=== PATIENT | female | born 1985 | race American Indian/Alaskan Native ===

== ENCOUNTER 2019-12-25 23:16 | Emergency (ER) | payer MEDICAID ==
[2019-12-26] MEDS ORDERED: amLODIPine 5 MG TAB PO ONE ×2 (01:19→01:30)
[2019-12-26 01:31] VITALS: BP 134/94
--- NOTE | 2019-12-26 01:38 | Emergency Department Report ---
Chief Complaint: Dizziness Stated Complaint: ELEVATED BP Time Seen by Provider: 12/26/19 00:27 - HPI History of Present Illness: This is a 34-year-old female with a history of hypertension currently taking nifedipine 60 mg daily. Patient states that she has been out of her medication for the past week. Patient does note that for the past week since her blood pressure has been elevated she has been having some slight intermittent headaches and intermittent dizziness which happens when her blood pressure is elevated. Patient states that she does not think her medication is working in reducing her blood pressure. She denies fever/chills/nausea vomiting/abdominal pain/chest pain coughing or any other symptoms. - ROS Review of Systems: As noted in HPI - Exam Vital Signs: Vital Signs 12/25/19 12/26/19 23:21 01:31 Temperature 99.0 F Pulse Rate 67 61 Respiratory 20 Rate Blood Pressure 141/100 134/94 O2 Sat by Pulse 100 Oximetry Physical Exam: GENERAL: Alert and oriented x3, no apparent distress, Normal Gait, atraumatic. HEAD: Head is normocephalic and a-traumatic. EYES: Extra ocular muscles are intact. Pupils are equal, round, and reactive to light and accommodation. MOUTH:Mouth is well hydrated and without lesions. Tonsils nonerythematous or swollen, Uvula midline, Tongue not elevated. Mucous membranes are moist. Posterior pharynx clear, no exudate or lesions. Patent airways. NECK: Supple. Non edematous, No carotid bruits. No lymphadenopathy or thyromegaly. No C-spine tenderness LUNGS: Symetrical with respiration, No wheezing, no rales or crackles, CTAB. HEART: S1, S2 present, regular rate and rhythm without murmur, no rubs, no gallops. Non tender to palpation SKIN: Warm and dry, No lesions, No ulceration or induration present. MSE screening note: Focused history and physical exam performed. Due to findings the following was ordered: ED Medical Decision Making - Medical Decision Making This is a 34-year-old female presents to ED for uncontrolled hypertension, Patient denies any chest pain Discussed with patient to follow-up with primary care physician for management of hypertension. Vital signs are normal patient is in no acute distress patient received amlodipine 10 mg in the ED. Blood pressure reduced prior to discharge. Discussed with patient if any worsening symptoms to return to ED. ED Disposition for MSE Clinical Impression: Uncontrolled hypertension Disposition: Z MED SCREENING EXAM-LEFT Is pt being admited?: No Does the pt Need Aspirin: No Condition: Stable Instructions: Hypertension (ED) Additional Instructions: Make sure to follow up with the primary care physician as discussed. Take all your medications as you've been prescribed. If you have any worsening symptoms or develop new symptoms please return to ED immediately. Prescriptions: amLODIPine 10 mg PO DAILY #30 tab Referrals: PRIMARY CARE, [Primary Care Provider] - 3-5 Days [facility] [Provider Group] - 3-5 Days [facility] [Outside] - 3-5 Days [facility] [Outside] - 3-5 Days Forms: Accompanied Note, Work/School Release Form(ED) Time of Disposition: 01:36
== END 2019-12-26 01:50 | disposition left against medical advice (07) ==
LOC: ED 23:16
DX: I10 Essential (primary) hypertension (principal)
CPT/HCPCS: 99282

== ENCOUNTER 2020-05-29 11:18 | Emergency (ER) | payer MEDICAID ==
--- NOTE | 2020-05-29 12:38 | Event Note ---
ED Screening Note ED Screening Note: LLQ abd pain that began 3 AM this morning +dark urine no n/v/d no dysuria BM yesterday PMHx HTN, migraine no allergies to meds LNMP: last month This initial assessment/diagnostic orders/clinical plan/treatment(s) is/are subject to change based on patients health status, clinical progression and re-assessment by fellow clinical providers in the ED. Further treatment and workup at subsequent clinical providers discretion. Patient/guardian urged not to elope from the ED as their condition may be serious if not clinically assessed and managed. Initial orders include: labs, UA
[2020-05-29 14:00] LABS: Bilirubin,Urine NEG (Negative); Blood,Urine NEG (Negative); Color,Urine Yellow (Yellow); Mucus,Urine FEW /HPF; Urobilinogen,Urine < 2.0 mg/dL (<2.0)
[2020-05-29 14:42] LABS: Basophils # (Auto) 0.1 K/mm3 (0.0-0.1); Basophils % (Auto) 0.5 % (0.0-1.8); Eosinophils % (Auto) 0.1 % (0.0-4.3); Hematocrit 38.6 % (30.3-42.9); Hemoglobin 12.5 gm/dl (10.1-14.3); Lymphocytes # (Auto) 0.5 K/mm3 (1.2-5.4); Lymphocytes % (Auto) 5.1 % (13.4-35.0); Mean Corpuscular HGB Conc 32 % (30-34); Mean Corpuscular Volume 83 fl (79-97); Monocytes # (Auto) 0.6 K/mm3 (0.0-0.8); Monocytes % (Auto) 5.2 % (0.0-7.3); Platelet Count 233 K/mm3 (140-440); Red Blood Count 4.63 M/mm3 (3.65-5.03); Red Cell Distribution Width 15.3 % (13.2-15.2)
[2020-05-29 14:43] LABS: Alanine Aminotransferase 9 units/L (7-56); Albumin 4.3 g/dL (3.9-5); BUN/Creatinine Ratio 8; Blood Urea Nitrogen 6 mg/dL (7-17); Calcium 9.5 mg/dL (8.4-10.2); Hemolysis Index 6
--- NOTE | 2020-05-29 15:21 | Emergency Department Report ---
ED Abdominal Pain HPI - General Chief Complaint: Abdominal Pain Stated Complaint: CHEST AND ABD PAIN Time Seen by Provider: 05/29/20 12:37 Source: patient Mode of arrival: Ambulatory Limitations: No Limitations - History of Present Illness Initial Comments: Patient is a 34-year-old female presents emergency room with complaints of lower abd pain that began 3 AM this morning. She states that her urine did appear darker in color. She denies any back pain. She denies any nausea, vomiting, diarrhea, fever, dysuria. She does not report any vaginal discharge or irritation. She states that she had a normal bowel movement yesterday.PMHx HTN, migraine. no allergies to meds. LNMP: 05/01/2020 - Related Data Previous Rx's Medication Instructions Recorded Last Taken Type amLODIPine 10 mg PO DAILY #30 tab 12/26/19 Unknown Rx Butalb/Acetaminophen/Caffeine 1 cap PO Q8HR PRN #10 cap 05/08/20 Unknown Rx [Fioricet 50-300-40 mg CAP] Naproxen 500 mg PO BID PRN #14 tablet 05/29/20 Unknown Rx cephALEXin [Keflex] 500 mg PO BID 7 Days #14 cap 05/29/20 Unknown Rx Allergies Allergy/AdvReac Type Severity Reaction Status Date / Time No Known Allergies Allergy Unverified 12/26/19 01:30 ED Review of Systems ROS: Stated complaint: CHEST AND ABD PAIN Other details as noted in HPI Comment: All other systems reviewed and negative ED Past Medical Hx - Past Medical History Hx Hypertension: Yes - Surgical History Additional Surgical History: c-sec X 3 - Social History Smoking Status: Never Smoker Substance Use Type: None - Medications Home Medications: Home Medications Medication Instructions Recorded Confirmed Last Taken Type amLODIPine 10 mg PO DAILY #30 tab 12/26/19 Unknown Rx Butalb/Acetaminophen/Caffeine 1 cap PO Q8HR PRN #10 cap 05/08/20 Unknown Rx [Fioricet 50-300-40 mg CAP] Naproxen 500 mg PO BID PRN #14 tablet 05/29/20 Unknown Rx cephALEXin [Keflex] 500 mg PO BID 7 Days #14 cap 05/29/20 Unknown Rx ED Physical Exam - General Limitations: No Limitations General appearance: alert, in no apparent distress - Head Head exam: Present: atraumatic, normocephalic - Eye Eye exam: Present: normal appearance - ENT ENT exam: Present: mucous membranes moist - Respiratory Respiratory exam: Present: normal lung sounds bilaterally. Absent: respiratory distress, wheezes, rales, rhonchi, stridor, chest wall tenderness, accessory muscle use, decreased breath sounds, prolonged expiratory - Cardiovascular Cardiovascular Exam: Present: regular rate, normal rhythm, normal heart sounds. Absent: systolic murmur, diastolic murmur, rubs, gallop - GI/Abdominal GI/Abdominal exam: Present: soft, tenderness (suprapubic), normal bowel sounds. Absent: distended, guarding, rebound, rigid - Neurological Exam Neurological exam: Present: alert, oriented X3 - Psychiatric Psychiatric exam: Present: normal affect, normal mood - Skin Skin exam: Present: warm, dry, intact ED Course Vital Signs 05/29/20 05/29/20 11:55 15:44 Temperature 99.3 F Pulse Rate 103 H 90 Respiratory 20 18 Rate Blood Pressure 134/91 Blood Pressure 131/84 [Left] O2 Sat by Pulse 96 97 Oximetry ED Medical Decision Making - Lab Data Result diagrams: 05/29/20 13:57 05/29/20 13:57 Lab Results 05/29/20 05/29/20 05/29/20 Range/Units 13:01 13:57 13:57 WBC 10.7 (4.5-11.0) K/mm3 RBC 4.63 (3.65-5.03) M/mm3 Hgb 12.5 (10.1-14.3) gm/dl Hct 38.6 (30.3-42.9) % MCV 83 (79-97) fl MCH 27 L (28-32) pg MCHC 32 (30-34) % RDW 15.3 H (13.2-15.2) % Plt Count 233 (140-440) K/mm3 Lymph % (Auto) 5.1 L (13.4-35.0) % Clare % (Auto) 5.2 (0.0-7.3) % Eos % (Auto) 0.1 (0.0-4.3) % Baso % (Auto) 0.5 (0.0-1.8) % Lymph # 0.5 L (1.2-5.4) K/mm3 Clare # 0.6 (0.0-0.8) K/mm3 Eos # 0.0 (0.0-0.4) K/mm3 Baso # 0.1 (0.0-0.1) K/mm3 Seg Neutrophils % 89.1 H (40.0-70.0) % Seg Neutrophils # 9.6 H (1.8-7.7) K/mm3 Sodium 137 (137-145) mmol/L Potassium 3.6 (3.6-5.0) mmol/L Chloride 99.4 (98-107) mmol/L Carbon Dioxide 22 (22-30) mmol/L Anion Gap 19 mmol/L BUN 6 L (7-17) mg/dL Creatinine 0.8 (0.6-1.2) mg/dL Estimated GFR > 60 ml/min BUN/Creatinine Ratio 8 % Glucose 62 L (65-100) mg/dL Calcium 9.5 (8.4-10.2) mg/dL Total Bilirubin 0.80 (0.1-1.2) mg/dL AST 15 (5-40) units/L ALT 9 (7-56) units/L Alkaline Phosphatase 70 (35-129) units/L Total Protein 8.7 H (6.3-8.2) g/dL Albumin 4.3 (3.9-5) g/dL Albumin/Globulin Ratio 1.0 % Lipase 13 (13-60) units/L HCG, Quant (0-4) mIU/mL Urine Color Yellow (Yellow) Urine Turbidity Clear (Clear) Urine pH 7.0 (5.0-7.0) Ur Specific [place] 1.020 (1.003-1.030) Urine Protein 30 mg/dl (Negative) mg/dL Urine Glucose (UA) Neg (Negative) mg/dL Urine Ketones Neg (Negative) mg/dL Urine Blood Neg (Negative) Urine Nitrite Neg (Negative) Urine Bilirubin Neg (Negative) Urine Urobilinogen < 2.0 (<2.0) mg/dL Ur Leukocyte Esterase Sm (Negative) Urine WBC (Auto) 48.0 H (0.0-6.0) /HPF Urine RBC (Auto) 3.0 (0.0-6.0) /HPF U Epithel Cells (Auto) 6.0 (0-13.0) /HPF Urine Mucus Few /HPF 08/28/20 Range/Units 13:57 WBC (4.5-11.0) K/mm3 RBC (3.65-5.03) M/mm3 Hgb (10.1-14.3) gm/dl Hct (30.3-42.9) % MCV (79-97) fl MCH (28-32) pg MCHC (30-34) % RDW (13.2-15.2) % Plt Count (140-440) K/mm3 Lymph % (Auto) (13.4-35.0) % Clare % (Auto) (0.0-7.3) % Eos % (Auto) (0.0-4.3) % Baso % (Auto) (0.0-1.8) % Lymph # (1.2-5.4) K/mm3 Clare # (0.0-0.8) K/mm3 Eos # (0.0-0.4) K/mm3 Baso # (0.0-0.1) K/mm3 Seg Neutrophils % (40.0-70.0) % Seg Neutrophils # (1.8-7.7) K/mm3 Sodium (137-145) mmol/L Potassium (3.6-5.0) mmol/L Chloride (98-107) mmol/L Carbon Dioxide (22-30) mmol/L Anion Gap mmol/L BUN (7-17) mg/dL Creatinine (0.6-1.2) mg/dL Estimated GFR ml/min BUN/Creatinine Ratio % Glucose (65-100) mg/dL Calcium (8.4-10.2) mg/dL Total Bilirubin (0.1-1.2) mg/dL AST (5-40) units/L ALT (7-56) units/L Alkaline Phosphatase (35-129) units/L Total Protein (6.3-8.2) g/dL Albumin (3.9-5) g/dL Albumin/Globulin Ratio % Lipase (13-60) units/L HCG, Quant < 2 (0-4) mIU/mL Urine Color (Yellow) Urine Turbidity (Clear) Urine pH (5.0-7.0) Ur Specific [place] (1.003-1.030) Urine Protein (Negative) mg/dL Urine Glucose (UA) (Negative) mg/dL Urine Ketones (Negative) mg/dL Urine Blood (Negative) Urine Nitrite (Negative) Urine Bilirubin (Negative) Urine Urobilinogen (<2.0) mg/dL Ur Leukocyte Esterase (Negative) Urine WBC (Auto) (0.0-6.0) /HPF Urine RBC (Auto) (0.0-6.0) /HPF U Epithel Cells (Auto) (0-13.0) /HPF Urine Mucus /HPF - Medical Decision Making Patient is a 34-year-old female presents emergency room with complaints of lower abd pain that began 3 AM this morning. She states that her urine did appear darker in color. She denies any back pain. She denies any nausea, vomiting, diarrhea, fever, dysuria. She does not report any vaginal discharge or irritation. She states that she had a normal bowel movement yesterday.PMHx HTN, migraine. no allergies to meds. LNMP: 05/01/2020. VSS. on exam: Suprapubic tenderness palpation, no guarding, no rebound, no rigidity, normal bowel sounds. White blood cell count is normal. UA shows evidence of UTI. Patient given pain medication while in the ED. patient given prescription for Keflex and naproxen. Advised patient Please take medication as prescribed. Please increase your water intake. Please follow-up with a primary care doctor for reexamination. Please have your urine retested for clearance of bacteria. Return to emergency room for any new or worsening symptoms. Critical care attestation.: If time is entered above; I have spent that time in minutes in the direct care of this critically ill patient, excluding procedure time. ED Disposition Clinical Impression: UTI (urinary tract infection) Qualifiers: Urinary tract infection type: acute cystitis Hematuria presence: without hematuria Qualified Code(s): N30.00 - Acute cystitis without hematuria Abdominal pain Qualifiers: Abdominal location: lower abdomen, unspecified Qualified Code(s): R10.30 - Lower abdominal pain, unspecified Disposition: TO HOME OR SELFCARE Is pt being admited?: No Does the pt Need Aspirin: No Condition: Stable Instructions: Urinary Tract Infection in Women (ED), Abdominal Pain (ED) Additional Instructions: Please take medication as prescribed. Please increase your water intake. Please follow-up with a primary care doctor for reexamination. Please have your urine retested for clearance of bacteria. Return to emergency room for any new or worsening symptoms. Prescriptions: cephALEXin [Keflex] 500 mg PO BID 7 Days #14 cap Naproxen 500 mg PO BID PRN #14 tablet PRN Reason: pain Referrals: LAST DONALD MD [Staff Physician] - 2-3 Days [facility] [Provider Group] - 2-3 Days Forms: Work/School Release Form(ED) Time of Disposition: 15:23 Print Language: ROMANSH
[2020-05-29] MEDS ORDERED: KETOROLAC 60 MG/2 ML INJ IM ONE (15:22)
[2020-05-29 15:46] VITALS: BP 131/84
== END 2020-05-29 15:44 | disposition home or self-care (01) ==
LOC: ED 11:18
DX: N39.0 Urinary tract infection, site not specified (principal); R10.30 Lower abdominal pain, unspecified; I10 Essential (primary) hypertension; Z98.890 Other specified postprocedural states; Z79.899 Other long term (current) drug therapy
CPT/HCPCS: 36415; 80053; 81001; 83690; 84702; 85025; 87086; 96372; 99283; J1885